=== PATIENT | female | born 1985 | race Two or more races ===

== ENCOUNTER 2024-12-14 19:35 | Emergency (ER) | payer MEDICAID ==
[~2024-12-14] VITALS: Ht 162.6 cm; Wt 68.0 kg
[2024-12-14 19:50] VITALS: O2SAT 100
[2024-12-14 21:27] LABS: BASOPHILS % 0.4 % (0.0-2.0); EOSINOPHILS % 0.4 % (0.0-5.0); HEMATOCRIT. 40.5 % (36.0-48.0); HEMOGLOBIN. 13.9 g/dL (12.0-16.0); LYMPHOCYTES % 22.3 % (20.0-50.0); MEAN PLATELET VOLUME 9.2 fl (7.4-10.4); MONOCYTES % 4.9 % (2.0-8.0); NEUTROPHILS % 72.0 % (40.0-76.0); PLATELET 228 x1000/uL (130-400); RED BLOOD CELL COUNT 4.45 mill/uL (4.2-5.4); RED CELL DISTRIBUTION WIDTH 13.1 % (11.6-14.6)
[2024-12-14] MEDS: LORAZEPAM 0.5MG TABLET PO ONE (21:37)
[2024-12-14 21:40] LABS: CREATININE 0.6 mg/dL (0.6-1.0); UREA NITROGEN BLOOD 7 mg/dL (9-23)
[2024-12-14 21:42] LABS: TROPONIN I HIGH SENSITIVITY < 4 ng/L (3.0-34)
[2024-12-15 00:05] VITALS: BP 114/68; PULSE 73; RESP 16; TEMP 36.9; O2SAT 100
== END 2024-12-15 00:12 | disposition home or self-care (01) ==
LOC: ER 20:27
DX: F41.9 Anxiety disorder, unspecified (principal); R06.02 Shortness of breath; Z88.0 Allergy status to penicillin; Z98.890 Other specified postprocedural states
CPT/HCPCS: 36415; 71045; 80048; 83880; 84484; 85025; 93005; 99285